=== PATIENT | male | born 1995 | race African-American/Black ===

== ENCOUNTER 2019-03-01 19:37 | Emergency (ER) | payer MEDICAID ==
[~2019-03-01] VITALS: Ht 180.3 cm; Wt 72.7 kg
[~2019-03-01 19:37] MED LIST: NO HOME MEDICATIONS; RITE AID LICE T59 ML TP; SEPTRA DS 8001 TAB PO
[2019-03-01 19:48] VITALS: BP 122/76; TEMP 98.5
[2019-03-01 20:12] LABS: COLLECTION METHOD CLEAN CATCH
[2019-03-01] MEDS ORDERED: DOXYCYCLINE 10100 MG PO (20:39)
[2019-03-01 20:48] LABS: MUCOUS Present /lpf; PH 7 (5-8); SQUAMOUS EPITHELIAL None Seen /hpf; URINE APPEARANCE Hazy; URINE BACTERIA Rare /hpf; URINE BILIRUBIN Negative (NEGATIVE); URINE BLOOD Negative (NEGATIVE); URINE COLOR Yellow; URINE GLUCOSE Negative (NEGATIVE); URINE KETONE Negative (NEGATIVE); URINE LEUKOCYTE ESTERASE Negative (NEGATIVE); URINE NITRATE Negative (NEGATIVE); URINE PROTEIN(semi-quant) Negative (NEGATIVE); URINE RBC 0-2 /hpf; URINE UROBILINOGEN Negative (NEGATIVE)
[2019-03-01] MEDS ORDERED: DOXYCYCLINE HY100 MG PO (21:09)
[2019-03-01 21:20] VITALS: PULSE 58
== END 2019-03-01 21:20 | disposition home or self-care (01) ==
LOC: COL.ER 19:37
PROVIDERS: Physician Assistant
DX: N45.1 Epididymitis (principal); Z20.2 Contact with and (suspected) exposure to infections with a predominantly sexual mode of transmission
CPT/HCPCS: J0696